=== PATIENT | male | born 1935 | race Caucasian/White ===

== ENCOUNTER → 2023-05-10 15:46 | Outpatient (REF) | payer OTHER, SELFPAY | LOC: DHCBS MAIN 15:46 | PROVIDERS: ATTENDING PHYSICIAN Internal Medicine Cardiovascular Disease; FAMILY PHYSICIAN Family Medicine | DX: R55 Syncope and collapse (principal) | CPT/HCPCS: 93306 ==

== ENCOUNTER 2023-11-20 14:41 | Emergency (ER) | payer OTHER, SELFPAY ==
[2023-11-20 14:43] VITALS: BP 134/66
[2023-11-20 15:01] VITALS: BMI 25.5
--- NOTE | 2023-11-20 15:14 | ED.GENMED ---
History of Present Illness
General
Chief Complaint: Bowel Problem
Time Seen by Provider: 11/20/23 15:08
History of Present Illness
History of Present Illness:
HPI: The patient presents due to rectal/perianal pain. He has been constipated the last several days. He has tried laxatives without improvement. He senses that he cannot push the bowel movement out and there has been leakage of stool around the
ball of stool. He has no abdominal pain. This was causing such severe discomfort that he was picking up to his today and came in here for further evaluation. He has not tried an enema
EXAM:
GENERAL: Well appearing in no distress
HEENT: Moist oral mucosa
ABDOMEN: There is a large rectal fecal impaction with no blood soft with no peritoneal signs, no tenderness
NEUROLOGIC: Excellent strength all extremities, no coordination deficits
PSYCHIATRIC: Appropriate mental status, normal insight and judgement
EXTREMITIES: Nontender, no edema, moves all extremities equally
SKIN: No rash, no lesions
TIME OF INITIAL ENCOUNTER: 3:10 PM
NUMBER AND COMPLEXITY OF PROBLEMS ADDRESSED AT THE ENCOUNTER
� Chronic conditions affecting care: Hyperlipidemia, diabetes, constipation
� Acute Exacerbation and/or Progression of Chronic Illness: This is an acute problem but has had similar episodes in the past
� Differential Diagnosis includes: Rectal fecal impaction, constipation, bowel obstruction very unlikely as there is been no vomiting
AMOUNT AND/OR COMPLEXITY OF DATA TO BE REVIEWED AND ANALYZED
� I performed an independent evaluation of and my interpretation is:
EKG:
CT:
X-rays:
Laboratory Studies:
Other:
� Review of other/old records: Colonoscopy from 2019 showed diverticulosis
� Clinical information was obtained by an independent historian: I spoke to the at bedside
� Prescriptions/Medications Considered but not given:
� Further testing considered but not performed: Considered x-ray however the patient has no vomiting and he was successfully disimpacted without difficulty and was able to have a bowel movement in the ED.
RISK OF COMPLICATIONS AND/OR MORBIDITY OR MORTALITY OF PATIENT MANAGEMENT
� Social determinants of health affecting care: Lives at home
� Discussion with other providers:
� Escalation of care including admission/observation vs risk of discharge considered: I manually disimpacted a large amount of stool. He was able to walk to the bathroom and have more of a bowel movement as well. I also
recommended MiraLAX and suggested that he also could try magnesium citrate.
Phy Exam
Physical Exam
Physical Exam:
See HPI
Course
Orders/Labs/Results
Orders:
Orders
11/20/23 15:03
Obstruct Series W/PA Chest [CR Obstruct Series W/pa Chest] Urgent
Comment:
Reason For Exam: Constipation
Vital Signs
Initial and Last Documented VS:
Initial Vital Signs
Temp Pulse Resp BP Pulse Ox
97.6 F 69 18 134/66 96
11/20/23 14:43 11/20/23 14:43 11/20/23 14:43 11/20/23 14:43 11/20/23 14:43
Last Documented Vital Signs
Temp Pulse Resp BP Pulse Ox
97.6 F 69 18 134/66 96
11/20/23 14:43 11/20/23 14:43 11/20/23 14:43 11/20/23 14:43 11/20/23 14:43
*Critical Care Note
Total Time (30-74mins, 75-104mins- exclusive of procedures): Not Applicable
ED Attending Note
-
Portions of this chart may have been created with voice recognition software.� Occasional wrong word or��sound alike� substitutions may have occurred due to the inherent limitations of voice recognition software.
Discharge Plan
Departure
Patient Disposition: Home (Routine Discharge)
Date of Disposition: 11/20/23
Time of Disposition: 15:17
Patient with high blood pressure during this ER visit?: Yes
Discharge Problem:
Fecal impaction in rectum
Instructions: Constipation, Adult (DC), Fecal Impaction (DC)
Activity Restrictions/Additional Instructions:
I disimpacted a large amount of stool from your rectum. Continue MiraLAX over the next few days. Return here if worse.
Interventions
Interventions:
*Risk Screen - Suicide Last Done: 11/20/23 15:02
*General Assessment Last Done: 11/20/23 14:43
*Neglect/Abuse Screening Last Done: 11/20/23 15:02
ED- Fall Risk Assessment Last Done: 11/20/23 14:59
*ED COVID-19 Vaccine History Last Done: 11/20/23 14:43
IE-[facility]-Qyqznoqkpl Assessment Last Done: 11/20/23 15:02
Discharge Date and Time
Print Language: HAITIAN
== END 2023-11-20 15:31 | disposition home or self-care (01) ==
LOC: EMR 14:41
PROVIDERS: EMERGENCY PHYSICIAN Emergency Medicine; FAMILY PHYSICIAN Family Medicine
DX: K56.41 Fecal impaction (principal); R03.0 Elevated blood-pressure reading, without diagnosis of hypertension; K57.90 Diverticulosis of intestine, part unspecified, without perforation or abscess without bleeding; E11.9 Type 2 diabetes mellitus without complications; E78.5 Hyperlipidemia, unspecified
CPT/HCPCS: 99282

== ENCOUNTER → 2024-01-12 14:15 | Outpatient (REF) | payer OTHER, SELFPAY | LOC: RAD 14:15 | PROVIDERS: ATTENDING PHYSICIAN Family Medicine | DX: G45.9 Transient cerebral ischemic attack, unspecified (principal) | CPT/HCPCS: 93880 ==